=== PATIENT | female | born 1965 | race Caucasian/White ===

== ENCOUNTER → 2016-06-16 | Outpatient (CLI) | payer BC, MEDICARE ==
[~2016-06-16] MED LIST: /ESOM40CA OR; ATEN25TA OR; FLEXERIL PO; MAXA10TA17 OR; NORT10CA2 OR; RANI300T OR; SPIR25TA2 OR; TOPI100T OR; TOPI50TA OR; VICO5TAB OR; VITACAP31 PO; VITAMIN B12 PO
--- NOTE | 2016-06-24 01:33 | ECWPNPC ---
PATIENT NAME: CHELSY HUNT : 1965 GENDER: FEMALE VISIT DATE: 06/16/2016 DISCHARGE DATE: 06/16/16 1439 VISIT LOCKED DATE TIME: PHYSICIAN: CHI FLORES RESOURCE: CHI FLORES REASON FOR APPOINTMENT 1. NECK/BACK HISTORY OF PRESENT ILLNESS NEW PATIENT CONSULT: 51 Y/O REFERRED BY LUANNE KOROMA PA-C FOR CHRONIC LOW BACK PAIN AND NECK PAIN.THIS HAS BEEN AN ISSUE FOR SEVERAL YEARS.WAS TOLD THAT NECK INJECTIONS MAY BE HELPFUL FOR CHRONIC MIGRAINE HEADACHES.RECIEVED TWO ROUNDS OF BOTOX PAST 6 MOS. 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 WHEN DID YOUR PAIN FIRST START? . BRIEFLY DESCRIBE HOW YOUR PAIN STARTED? . HOW DOES YOUR PAIN CHANGE WITH TIME? . DOES YOUR PAIN AWAKEN YOU FROM SLEEP? . HOW MANY HOURS OF SLEEP DO YOU NORMALLY GET? . ANY DIAGNOSTIC TESTING? . FACILITY WHERE TESTS WERE DONE? ____. PAIN TREATMENT TREATMENT YES CANCER HAVE YOU EVER HAD ANY TYPE OF CANCER?NO NO. PAIN SCREENING: PATIENT HAS A COMPLAINT OF ACUTE OR CHRONIC PAIN :YES FALL RISK SCREENING: SCREENING :NO FALLS IN THE PAST YEAR SANDERS INVENTORY: QUESTIONNAIRE ASSESSEDTBD SCORE VALUE CALCULATED TBD CURRENT MEDICATIONS TAKING CYCLOBENZAPRINE HCL 10 MG TABLET 1 TABLET ORALLY EVERY BEDTIME TAKING VITAMIN B-12 1000 MCG TABLET 1 TABLET ORALLY ONCE A DAY TAKING VITAMIN D3 59660 UNIT CAPSULE 1 CAPSULE ORALLY ONCE A DAY TAKING MAY USE C PAP DIRECTED TAKING RELPAX 40 MG TABLET 1 TABLET AT ONSET OF HEADACHE, MAY REPEAT AFTER 2 HOURS IF HEADACHE RETURNS ORALLY NEEDED TAKING MELOXICAM 7.5 MG TABLET 1 TABLET ORALLY TWICE A DAY TAKING ATENOLOL 25 MG TABLET 1 TABLET ORALLY ONCE A DAY TAKING HYDROCODONE-ACETAMINOPHEN 5-325 MG TABLET 1 TABLET NEEDED ORALLY DAILY NEEDED TAKING ESOMEPRAZOLE MAGNESIUM 40 MG CAPSULE DELAYED RELEASE 2 CAPSULES ORALLY TWICE A DAY TAKING ASPIRIN ADULT LOW DOSE 81 MG TABLET DELAYED RELEASE 1 TABLET ORALLY ONCE A DAY NOT-TAKING NORTRIPTYLINE HCL 10 MG CAPSULE 2 TAB(S) ORALLY BEDTIME NOT-TAKING TOPIRAMATE 100 MG TABLET 2 TABLETS ORALLY 50 MG. IN THE AM AND 100 MG. AT BEDTIME NOT-TAKING NEXIUM 40 MG CAPSULE DELAYED RELEASE 1 CAP(S) ORALLY TWICE A DAY NOT-TAKING FERROUS SULFATE 220 (44 FE) MG/5ML ELIXIR 5 ML ORALLY TWICE A DAY MEDICATION LIST REVIEWED AND RECONCILED WITH THE PATIENT PAST MEDICAL HISTORY MAC PNEUMONIA WITH BRONCHIECTASIS SEVERE GASTROESOPHAGEAL REFLUX DISEASE FIBROMYALGIA OSTEOARTHRITIS HYPERTENSION MIGRAINE HEADACHE HISTORY OF LUNG ABSCESS AND PNEUMONIA IN 1990 VITAMIN D DEFICIENCY PERNICIOUS ANEMIA COPD TIA SLEEP APNEA ASTHMA ALLERGIES ERYTHROMYCIN: NAUSEA/VOMITING: SIDE EFFECTS IMITREX: NUMBNESS IN EXTREMITIES: SIDE EFFECTS SPIRONOLACTONE: DIZZINESS: SIDE EFFECTS LYRICA: CONFUSION: SIDE EFFECTS ROBAXIN: DIZZINESS: SIDE EFFECTS SURGICAL HISTORY BLADDER SURGERY 1968 TONSILECTOMY 03/17 RIGHT LUNG REMOVED 2009 FAMILY HISTORY FATHER: ALIVE MOTHER: ALIVE SIBLINGS: ALIVE SON(S): ALIVE DAUGHTER(S): ALIVE PATERNAL GRAND FATHER: PATERNAL GRAND MOTHER: MATERNAL GRAND FATHER: MATERNAL GRAND MOTHER: 1 BROTHER(S) , 2 SISTER(S) . 1 SON(S) , 1 DAUGHTER(S) . FATHER/OXYGEN DEP,SEVERAL SURGERIES,CANCER,HEART DISEASE,MINI STROKES,PARKINSON,ALZHEIMERS,HTN,DIABETES,ARTHRITIS,COPDMOTHER/CO D,ARTHRITISBROTHER HAS ARTHRITIS,LUPUSSISTERS HAVE ARTHRITIS AND 1 SISTER HAS HEART PROBLEMS AND PANIC ATTACKSDAUGHTER HAS MENSTRUAL CYCLE SINCE 10 CONTINUOUS. SOCIAL HISTORY GENERAL: ALCOHOL SCREENING POINTS0 INTERPRETATIONNEGATIVE RECREATIONAL DRUG USE DRUG USE? STATES NO HISTORY ILLEGAL DRUG USE. ISLAM ISLAM NO PREFERENCE LEARNING BARRIERS / SPECIAL NEEDS BARRIERS TO LEARNING?NO HEARING IMPAIRED?NO VISION IMPAIRED?YES READING GLASSES COGNITIVELY IMPAIRED?NO READINESS TO LEARN?YES LEARNING PREFERENCES?NO LEARNING CAPABILITIES PRESENT?YES EMOTIONAL BARRIERS?NO SPECIAL DEVICES?NO AGRICULTURE EXTENSION SPECIALIST NEEDED?NO PAIN CLINIC PFS, CLERGY, PUBLIC HEALTH REFERRALS CLERGY REFERRAL NEEDED?NO WAS THE PROVIDER NOTIFIED OF ANY PERTINENT INFO?NO PFS REFERRAL NEEDED?NO PUBLIC HEALTH REFERRAL NEEDED?NO PATIENT: ____. ADVANCED DIRECTIVES HEALTH CARE PROXY? UNSURE. INFORMATION OFFERED AND DECLINED. HOSPITALIZATION/MAJOR DIAGNOSTIC PROCEDURE BLADDER 1969 TONSILS 1982 CHILDBIRTH 1986 CHILDBIRTH 1992 LUNG 2010 REVIEW OF SYSTEMS CONSTITUTIONAL: RECENT ILLNESS DENIES . ANY CHANGE IN YOUR MEDICAL CONDITION? NO . CHILLS NO . FEVER NO, DENIES . WEIGHT LOSS DENIES . INFECTION: DO YOU HAVE NEW INFECTIONS? NO . DO YOU HAVE HISTORY OF MRSA? NO . MUSCULOSKELETAL: ANY NEW PATTERNS OF PAIN OR NUMBNESS? NO . SYTEMIC LUPUS TESTED BORDERLINE ONCE BUT NO CURRENT DIAGNOSIS, BROTHER DOES HAVE IT . JOINT PAIN DENIES . JOINT STIFFNESS DENIES . GASTROENTEROLOGY: BOWEL INCONTINENCE DENIES . ANY NEW CHANGE IN BOWEL CONTROL? NO . BARRETTS ESOPHAGUS NO . CIRRHOSIS NO . HEPATITIS NO . LIVER FAILURE NO . ACID REFLUX YES . BLOOD IN STOOL DENIES . UNEXPLAINED WEIGHT LOSS NO . GENITOURINARY: ANY NEW CHANGE IN BLADDER CONTROL? NO . IS THERE A CHANCE YOU COULD BE ? NO . HEMATOLOGY/LYMPH: DENIES . BLEEDING DISORDER DENIES . DO YOU TAKE ANY BLOOD THINNERS? (FOR EXAMPLE- COUMADIN, PLAVIX, AGGRENOX, PLATEL, PRADAXA, OR XARELTO) NO . WHEN WAS YOUR LAST DOSE? DATE: TIME: . LOW PLATELET COUNT NO . SICKLE CELL DISEASE NO . VON WILLIEBRANDS NO . FACTOR V LEIDEN NO . THALLASEMIA NO . ANEMIA NO . EASY BRUISING YES, STATES IS DUE TO MOBIC . NEUROLOGY: HAVE YOU FALLEN IN THE PAST 6 MONTHS? NO . ANY NEW EXTREMITY NUMBNESS OR WEAKNESS? NO . HEAD INJURY NO . DEMENTIA NO . CEREBRAL PALSY NO . MULTIPLE SCLEROSIS NO . DIZZINESS NO . HEADACHE NO, DENIES . SEIZURES DENIES . STROKES NO, DOES HAVE A HISTORY OF TIA MORE THAN 6 MONTH AGO . VERTIGO NO . CARDIOLOGY: DO YOU HAVE A PACEMAKER OR DEFIBRILLATOR? NO . ANGINA NO . HEART ATTACK NO . HEART SURGERY NO . CONGESTIVE HEART FAILURE/FLUID OVERLOAD NO . CHEST PAIN LEFT-SIDED, SHARP, MOST RECENT EPISODE 1 WEEK AGO, STATES LASTED 30 MINUTES, DENIES . HIGH BLOOD PRESSURE YES . IRREGULAR HEART BEAT YES . SHORTNESS OF BREATH DENIES . RESPIRATORY: HAVE YOU BEEN SICK IN THE PAST WEEK? NO . FEVER NO . FLU LIKE SYMPTOMS? NO . CPAP YES . BYPAP NO . ASTHMA YES . EMPHYSEMA YES . CHRONIC LUNG DISEASES NO . SHORTNESS OF BREATH ON EXERTION YES . DO YOU USE ANY TYPE OF TOBACCO (SMOKE, SMOKELESS, CHEW)? NO . COUGH NO, DENIES . SHORTNESS OF BREATH DENIES . SNORING YES . INTEGUMENTARY: DO YOU HAVE ANY RASHES OR OPEN SORES? YES, DRY AREAS LEFT LEG . ALLERGIC/IMMUNO: ARE YOU ALLERGIC TO SHELLFISH OR IV DYE? NO . ANY NEW ALLERGIES? YES . PSYCHIATRIC: DO YOU HAVE THOUGHTS OF HURTING YOURSELF OR SOMEONE ELSE? NO . ARE YOU ABUSED, NEGLECTED, OR IN AN UNSAFE ENVIRONMENT? NO . ENDOCRINOLOGY: THYROID DISEASE DENIES . ARE YOU DIABETIC? NO . DIABETES DENIES . THYROID DISORDER HYPOTHYROID . OTHER: DO YOU NEED ANY PRESCRIPTIONS? NO . IF YES, PLEASE LIST: ____ . ANY NEW PROBLEMS WITH YOUR MEDICATIONS? NO . WHEN DID YOU LAST EAT? ____ . WHEN DID YOU LAST DRINK? ____ . WHAT DID YOU LAST DRINK? ____ . NAME OF PERSON DRIVING YOU HOME? ____ . DO YOU HAVE ANY OTHER QUESTIONS OR CONCERNS NO . HEENT: CHANGE IN VISION DENIES . LOSS OF HEARING DENIES . TROUBLE SWALLOWING DENIES . PSYCHOLOGY: ANXIETY DENIES . DEPRESSION DENIES . UROLOGY: URINARY INCONTINENCE DENIES . BLOOD IN URINE DENIES . REVIEWED BY: PROVIDER: CHI BARAKAT . VITAL SIGNS WT 184.4 LBS, HT 60 IN, BMI 36.01 INDEX, BP 167/98 MM HG, HR 102 /MIN, RR 18 /MIN, TEMP 98.1 F, OXYGEN SAT % 94%, NA INITIALS TL 1258, REVIEWED BY: LS. EXAMINATION GENERAL EXAMINATION: HEENT:HEAD:, NORMOCEPHALIC, EYES:, EYES NORMAL, NOSE:, NOSE CLEAR, THROAT: NORMAL. LUNGS:LUNG SOUNDS ARE CLEAR. HEART:HEART RATE REGULAR. ABDOMEN:SOFT AND NOT TENDER, NON-DISTENDED. MUSCULOSKELETAL:*. THORACIC SPINENEGATIVE FOR PAIN WITH PALPATION OF THORACIC SPINE. NEGATIVE FOR PAIN WITH PALPATION OF THORACIC PARASPINAL. CERVICAL+ FOR PAIN WITH PALPATION OF CERVICAL SPINE. + FOR PAIN WITH PALPATION OF CERVICAL PARASPINALS.+FOR PAIN WITH PALPATION OF OCCIPITAL NERVE ROOT BILAT.. SKIN:NORMAL, NO RASH. NEUROLOGIC EXAM:ALERT AND ORIENTED X 3, DTRS 1-2+ IN ALL 4 EXTREMITIES, DENIES UPPER EXTREMETIES SENSORY LOSS, DENIES LOWER EXTREMETIES SENSORY LOSS. ASSESSMENTS BILATERAL OCCIPITAL NEURALGIA - M54.81 (PRIMARY) LUMBAR FACET ARTHROPATHY - M12.88 TREATMENT BILATERAL OCCIPITAL NEURALGIA NOTES: [facility] [id number] EVALUATION OF C/O CHEST PAIN. OTHERS CLINICAL NOTES: ISTOP REGISTRY REVIEWED . PROCEDURES PN WORKMANS' COMP OPINION IN YOUR OPINION, WAS THE INCIDENT THAT THE PATIENT DESCRIBED THE COMPETENT MEDICAL CAUSE OF THIS INJURY/ILLNESS? YES ARE THE PATIENT'S COMPLAINTS CONSISTENT WITH HIS/HER HISTORY OF THE INJURY/ILLNESS? YES IS THE PATIENT'S HISTORY OF THE INJURY/ILLNESS CONSISTENT WITH YOUR OBJECTIVE FINDING? YES WHAT IS THE PERCENTAGE OF TEMPORARY IMPAIRMENT? MILD = 25% IS THE PATIENT WORKING? YES DOCTOR ON SITE: XU ROBERTS MD PROCEDURE CODES FA211 ESTABILISHED PATIENT [facility] CHARGE DISPOSITION & COMMUNICATION FOLLOW UP 6 WEEKS ELECTRONICALLY SIGNED BY ROSHNI SORIANO ON 06/23/2016 AT 06:02 PM EDT DISCLAIMER : THIS IS A VISIT SUMMARY EXTRACTED FROM THE [employer] CHART. IT IS NOT A COPY OF THE [employer] PROGRESS NOTE. KAYDEN
== END ==
LOC: M PAIN 13:20
PROVIDERS: ATTEND Nurse Practitioner Family
DX: M54.81 Occipital neuralgia (principal); M12.88 Other specific arthropathies, not elsewhere classified, other specified site; M54.2 Cervicalgia; G89.29 Other chronic pain; Z79.891 Long term (current) use of opiate analgesic; Z79.899 Other long term (current) drug therapy; Z79.82 Long term (current) use of aspirin; Z88.0 Allergy status to penicillin; Z88.8 Allergy status to other drugs, medicaments and biological substances; I10 Essential (primary) hypertension

== ENCOUNTER 2016-07-09 11:48 | Emergency (ER) | payer BC, MEDICARE ==
[~2016-07-09] VITALS: Ht 152.4 cm; Wt 79.4 kg
[2016-07-09] MEDS ORDERED: BOTO200I IJ (12:06)
[2016-07-09] MEDS ORDERED: METOPROLOL TART 50 MG TAB PO ONE (13:00)
[2016-07-09] MEDS: METOPROLOL 5 MG/5 ML VIAL IV SCH ×3 (13:03→13:16)
[2016-07-09 13:04] LABS: BASO % 0.7 % (0.0-1.0); EOS % 0.7 % (0.0-3.0); LARGE UNSTAINED CELL # 0.1 K/mm3 (0.0-0.4); LARGE UNSTAINED CELL % 1.6 % (0.0-4.0); LYMPH # 1.9 K/mm3 (1.5-4.5); LYMPH % 24.4 % (24.0-44.0); MEAN CORPUSCULAR HEMOGLOBIN 27.3 pg (27.0-33.0); MEAN CORPUSCULAR HGB CONC 32.2 g/dl (32.0-36.5); MEAN CORPUSCULAR VOLUME 84.8 fl (80.0-96.0); MONO # 0.5 K/mm3 (0.0-0.8); MONO % 6.9 % (0.0-5.0); NEUTROPHILS # 4.8 K/mm3 (1.8-7.7); NEUTROPHILS % 65.6 % (36.0-66.0); PLATELET COUNT, AUTOMATED 481 k/mm3 (150-450); RED CELL DISTRIBUTION WIDTH 13.6 % (11.5-14.5); WHITE BLOOD COUNT 7.3 K/mm3 (4.0-10.0)
[2016-07-09 13:14] LABS: ANION GAP 8 MEQ/L (8-16); BLOOD UREA NITROGEN 6 MG/DL (7-18); CALCIUM LEVEL 8.5 MG/DL (8.5-10.1); CARBON DIOXIDE LEVEL 29 MEQ/L (21-32); CHLORIDE LEVEL 98 MEQ/L (98-107); CREATININE FOR GFR 0.74 MG/DL (0.55-1.02); GLOMERULAR FILTRATION RATE > 60.0 (>51); GLUCOSE, FASTING 114 MG/DL (70-105); SODIUM LEVEL 135 MEQ/L (136-145)
[2016-07-09 13:18] VITALS: BP 142/89
--- NOTE | 2016-07-09 13:35 | REP ---
CHEST, PORTABLE: Single portable view of the chest is performed and compared to prior study of 02/26/2015. Linear fibroatelectatic changes seen in each lung base without evidence of acute infiltrate. The heart does not appear to be significantly enlarged. There is tortuosity of the thoracic aorta. The mediastinal silhouette is unchanged. IMPRESSION: No acute infiltrate. Signed by Og Mello MD 07/10/2016 04:43 P
[2016-07-09] MEDS ORDERED: POTASSIUM CHLORIDE 10 MEQ SR TABLET PO ONE (14:00)
[2016-07-09 14:10] LABS: FREE T4 1.78 NG/DL (0.76-1.46)
[2016-07-09 14:30] VITALS: BP 146/92
[2016-07-09] MEDS ORDERED: ATEN50TA2 PO ×2 (14:49→15:03)
[2016-07-09] MEDS ORDERED: ATEN25TA PO (15:01)
[2016-07-09] MEDS ORDERED: SYNT25TA PO (15:01)
[2016-07-09] MEDS ORDERED: VITA (15:01)
[2016-07-09] MEDS ORDERED: [UNRECOGNIZED DRUG - OTHER] (15:01)
--- NOTE | 2016-07-10 09:16 | ECGEPIP ---
Stationary ECG Study [facility] - ED Test Date: 2016-07-09 Pat Name: CHELSY HUNT Department: Room: - Gender: F [employer] Construction Project Manager: JWayne : 1965 Requested By: Kian Burns Order Number: [id number] Reading MD: Melissa Waterman Measurements Intervals Wilson Rate: 106 P: 35 WA: 150 QRS: 25 QRSD: 90 T: -6 QT: 349 QTc: 465 Interpretive Statements SINUS TACHYCARDIA NONSPECIFIC T-WAVE ABNORMALITY ABNORMAL RHYTHM ECG INCREASED RATE 04/15/14 Electronically Signed On 07-10-2016 9:16:15 EDT by Melissa Waterman
== END 2016-07-09 15:16 | disposition home or self-care (01) ==
LOC: M ED 14:09
DX: I10 Essential (primary) hypertension (principal); G43.909 Migraine, unspecified, not intractable, without status migrainosus; G47.30 Sleep apnea, unspecified; G89.29 Other chronic pain; Z79.899 Other long term (current) drug therapy; Z88.1 Allergy status to other antibiotic agents; Z88.8 Allergy status to other drugs, medicaments and biological substances

== ENCOUNTER → 2016-07-28 | Outpatient (REF) | payer BC, MEDICARE ==
[~2016-07-28] MED LIST changes: +ATEN25TA PO; +ATEN50TA2 PO; +BOTO200I IJ; +SYNT25TA PO; +VITA; +[UNRECOGNIZED DRUG - OTHER]
[2016-07-28 12:02] LABS: FREE T4 1.15 NG/DL (0.76-1.46)
== END ==
LOC: M SFHCLERA 08:38
PROVIDERS: ATTEND Family Medicine
DX: R94.6 Abnormal results of thyroid function studies (principal)

== ENCOUNTER → 2016-07-29 | Outpatient (CLI) | payer BC ==
[2016-07-29 17:40] LABS: ALBUMIN 4.1 GM/DL (3.2-5.2); ALBUMIN/GLOBULIN RATIO 1.08 (1.00-1.93); ALKALINE PHOSPHATASE 104 U/L (45-117); ALT/SGPT 20 U/L (12-78); ANION GAP 10 MEQ/L (8-16); AST/SGOT 12 U/L (15-37); BILIRUBIN,TOTAL 0.5 MG/DL (0.2-1.0); BLOOD UREA NITROGEN 12 MG/DL (7-18); CALCIUM LEVEL 9.5 MG/DL (8.5-10.1); CARBON DIOXIDE LEVEL 28 MEQ/L (21-32); CHLORIDE LEVEL 98 MEQ/L (98-107); CREATININE FOR GFR 0.91 MG/DL (0.55-1.02); GLOMERULAR FILTRATION RATE > 60.0 (>51); GLUCOSE, FASTING 104 MG/DL (70-105); POTASSIUM SERUM 4.1 MEQ/L (3.5-5.1); SODIUM LEVEL 136 MEQ/L (136-145); TOTAL PROTEIN 7.9 GM/DL (6.4-8.2)
[2016-07-29 18:17] LABS: BASO # 0.1 K/mm3 (0.0-0.2); BASO % 0.6 % (0.0-1.0); EOS # 0.1 K/mm3 (0.0-0.50); EOS % 1.1 % (0.0-3.0); LARGE UNSTAINED CELL # 0.1 K/mm3 (0.0-0.4); LARGE UNSTAINED CELL % 1.3 % (0.0-4.0); LYMPH % 19.5 % (24.0-44.0); MEAN CORPUSCULAR HEMOGLOBIN 28.4 pg (27.0-33.0); MEAN CORPUSCULAR HGB CONC 32.1 g/dl (32.0-36.5); MEAN CORPUSCULAR VOLUME 88.5 fl (80.0-96.0); MONO # 0.4 K/mm3 (0.0-0.8); MONO % 4.3 % (0.0-5.0); NEUTROPHILS # 7.4 K/mm3 (1.8-7.7); NEUTROPHILS % 73.2 % (36.0-66.0); PLATELET COUNT, AUTOMATED 503 k/mm3 (150-450); WHITE BLOOD COUNT 10.2 K/mm3 (4.0-10.0)
== END ==
LOC: M SMT 15:38
PROVIDERS: ATTEND Internal Medicine Rheumatology
DX: M17.11 Unilateral primary osteoarthritis, right knee (principal); Z79.899 Other long term (current) drug therapy; E55.9 Vitamin D deficiency, unspecified

== ENCOUNTER → 2016-08-04 | Outpatient (CLI) | payer BC, MEDICARE ==
--- NOTE | 2016-08-04 14:58 | REP ---
Thyroid sonography: History: Hyperthyroidism. Findings: Thyroid isthmus is 0.2 cm thick. Right lobe dimensions are 5.1 x 1.2 x 1.7 cm by ultrasound. The left lobe measures 3.9 x 1.2 x 1.8 cm. No focal thyroid nodule, mass or cyst is seen. No evidence of extrathyroidal adenopathy or mass. Impression: Normal thyroid sonography. Signed by Ron Colmenares MD 08/04/2016 03:14 P
--- NOTE | 2016-08-05 15:58 | REPMRS ---
Patient History The patient states she has not had a clinical breast exam in over a year. Family history of prostate cancer in father at age 60. Took unspecified hormones for 5 years. Patient states her last mammogram was done at [facility] Digital Mammo Screening Bilat: August 04, 2016 - Exam #: [id number] Bilateral CC and MLO view(s) were taken. Technologist: Nikole Strong, Technologist Prior study comparison: October 30, 2009, digital bilateral screening mammo, performed at [facility] 1928[facility]1983. FINDINGS: The breast tissue is heterogeneously dense. This may lower the sensitivity of mammography. There is a moderate amount of heterogeneously dense fibroglandular tissue which is fairly symmetric. There is a benign partially calcified fibroadenoma projecting in the upper outer quadrant on the right. There is no interval development of dominant mass, architectural distortion, or clustered microcalcification typical of malignancy. There has been no change in the appearance of the mammogram from the prior studies. ASSESSMENT: BI-RADS/ACR category 2 mammogram. Benign finding(s). Recommendation Routine screening mammogram of both breasts in 1 year (for women over age 40). This mammogram was interpreted with the aid of an FDA-approved computer-aided dectection system. Electronically Signed By: Darrell Colmenares MD 08/04/16 1234
== END ==
LOC: M RAD 13:55
PROVIDERS: ATTEND Family Medicine
DX: E05.90 Thyrotoxicosis, unspecified without thyrotoxic crisis or storm (principal); Z12.31 Encounter for screening mammogram for malignant neoplasm of breast
CPT/HCPCS: 76536; G0202

== ENCOUNTER → 2016-08-19 | Outpatient (CLI) | payer BC, MEDICARE ==
--- NOTE | 2016-08-20 01:40 | ECWPNPC ---
PATIENT NAME: CHELSY HUNT : 1965 GENDER: FEMALE VISIT DATE: 08/19/2016 DISCHARGE DATE: 08/19/16 1536 VISIT LOCKED DATE TIME: PHYSICIAN: CHI FLORES RESOURCE: CHI FLORES REASON FOR APPOINTMENT 1. BACK/HEAD HISTORY OF PRESENT ILLNESS HISTORY OF PRESENT ILLNESS: HERE FOR F/U OF CHRONIC NECK AND HEADACHE PAIN.HAS DAILY HEADACHES THAT ARE CHRONIC FOR YEARS.CURRENTLY BEING TREATED BY LUANNE KOROMA AT NEUROLOGY.SHE IS RECIEVING BOTOX WHICH HAS NOT BEEN HELPFUL.DISCUSSED TREATMENT OPTIONS TO INCLUDE CERVICAL FACET BLOCK AND OCCIPITAL NERVE BLOCKS.RATING PAIN VAS 7/10.PAIN IS DESCRIBED CONSTANT ACHE AND THROBBING PAIN IN OCCIPITAL REGION.REPORTS LIGHT SENSITIVITY AND NAUSEA.USES HYDROCODONE PRN AND THIS ALLEVIATES HEADACHE SLIGHTLY.ALSO SUFFERS FROM CHRONIC LOW BACK PAIN.HAS RHEUMATOID ARTHRITIS AND FOLLOWS WITH DR. SAUNDERS-RHEUMATOLOGY.DESCRIBES LOW BACK PAIN INTERMITTENT ACHING PAIN .RATING LOW BACK PAIN 8/10 VAS. PAIN THE PATIENT DESCRIBES THE PAIN... FALL RISK SCREENING: SCREENING :NO FALLS IN THE PAST YEAR CURRENT MEDICATIONS TAKING CYCLOBENZAPRINE HCL 10 MG TABLET 1 TABLET ORALLY EVERY BEDTIME TAKING VITAMIN B-12 1000 MCG TABLET 1 TABLET ORALLY ONCE A DAY TAKING VITAMIN D3 5000 UNIT CAPSULE 1 CAPSULE ORALLY ONCE A DAY TAKING MAY USE C PAP DIRECTED TAKING MELOXICAM 7.5 MG TABLET 1 TABLET ORALLY TWICE A DAY TAKING HYDROCODONE-ACETAMINOPHEN 5-325 MG TABLET 1 TABLET NEEDED ORALLY DAILY NEEDED TAKING ASPIRIN ADULT LOW DOSE 81 MG TABLET DELAYED RELEASE 1 TABLET ORALLY ONCE A DAY TAKING ESOMEPRAZOLE MAGNESIUM 40 MG CAPSULE DELAYED RELEASE 2 CAPSULES ORALLY TWICE A DAY TAKING METOPROLOL TARTRATE 25 MG TABLET 1 TABLET WITH FOOD ORALLY TWICE A DAY TAKING ATENOLOL 50 MG TABLET 1 TABLET ORALLY ONCE A DAY TAKING HYDROCHLOROTHIAZIDE 25 MG TABLET 1 TABLET IN THE MORNING ORALLY ONCE A DAY TAKING CHOLECALCIFEROL 5000 UNIT CAPSULE 1 CAPSULE ORALLY ONCE A DAY TAKING ZONISAMIDE 25 MG CAPSULE 2 CAPSULES ORALLY TWICE A DAY NOT-TAKING RELPAX 40 MG TABLET 1 TABLET AT ONSET OF HEADACHE, MAY REPEAT AFTER 2 HOURS IF HEADACHE RETURNS ORALLY NEEDED NOT-TAKING NORTRIPTYLINE HCL 10 MG CAPSULE 2 TAB(S) ORALLY BEDTIME NOT-TAKING TOPIRAMATE 100 MG TABLET 2 TABLETS ORALLY 50 MG. IN THE AM AND 100 MG. AT BEDTIME NOT-TAKING NEXIUM 40 MG CAPSULE DELAYED RELEASE 1 CAP(S) ORALLY TWICE A DAY NOT-TAKING FERROUS SULFATE 220 (44 FE) MG/5ML ELIXIR 5 ML ORALLY TWICE A DAY MEDICATION LIST REVIEWED AND RECONCILED WITH THE PATIENT PAST MEDICAL HISTORY MAC PNEUMONIA WITH BRONCHIECTASIS SEVERE GASTROESOPHAGEAL REFLUX DISEASE FIBROMYALGIA OSTEOARTHRITIS HYPERTENSION MIGRAINE HEADACHE HISTORY OF LUNG ABSCESS AND PNEUMONIA IN 1990 VITAMIN D DEFICIENCY PERNICIOUS ANEMIA COPD TIA SLEEP APNEA ASTHMA CERVICAL RADICULOPATHY HYPOTHYROIDISM LUPUS ERYTHEMATOSUS BILATERAL OCCIPITAL NEURALGIA ALLERGIES ERYTHROMYCIN: NAUSEA/VOMITING: SIDE EFFECTS IMITREX: NUMBNESS IN EXTREMITIES: SIDE EFFECTS SPIRONOLACTONE: DIZZINESS: SIDE EFFECTS LYRICA: CONFUSION: SIDE EFFECTS ROBAXIN: DIZZINESS: SIDE EFFECTS SUMATRIPTAN: DIZZINESS: SIDE EFFECTS AZITHROMYCIN: NAUSEA/VOMITING: SIDE EFFECTS RIFABUTIN: DIZZYNESS: SIDE EFFECTS SURGICAL HISTORY BLADDER SURGERY 1969 TONSILECTOMY 03/17 RIGHT LUNG REMOVED 2009 HOSPITALIZATION/MAJOR DIAGNOSTIC PROCEDURE BLADDER 1969 TONSILS 1981 CHILDBIRTH 1985 CHILDBIRTH 1992 LUNG 2010 REVIEW OF SYSTEMS CONSTITUTIONAL: ANY CHANGE IN YOUR MEDICAL CONDITION? NO . CHILLS NO . FEVER NO . INFECTION: DO YOU HAVE NEW INFECTIONS? NO . DO YOU HAVE HISTORY OF MRSA? NO . MUSCULOSKELETAL: ANY NEW PATTERNS OF PAIN OR NUMBNESS? NO . GASTROENTEROLOGY: ANY NEW CHANGE IN BOWEL CONTROL? NO . GENITOURINARY: ANY NEW CHANGE IN BLADDER CONTROL? NO . IS THERE A CHANCE YOU COULD BE ? NO . HEMATOLOGY/LYMPH: DO YOU TAKE ANY BLOOD THINNERS? (FOR EXAMPLE- COUMADIN, PLAVIX, AGGRENOX, PLATEL, PRADAXA, OR XARELTO) NO . WHEN WAS YOUR LAST DOSE? DATE: TIME: . NEUROLOGY: HAVE YOU FALLEN IN THE PAST 6 MONTHS? NO . ANY NEW EXTREMITY NUMBNESS OR WEAKNESS? NO . CARDIOLOGY: DO YOU HAVE A PACEMAKER OR DEFIBRILLATOR? TO ER FOR CHEST PAIN AFTER LAST VISIT IN JUNE AND STATES SHE WAS NEGATIVE FOR ANY CARDIAC ISSUES. . RESPIRATORY: HAVE YOU BEEN SICK IN THE PAST WEEK? NO . FEVER NO . FLU LIKE SYMPTOMS? NO . COUGH NO . INTEGUMENTARY: DO YOU HAVE ANY RASHES OR OPEN SORES? NO . ALLERGIC/IMMUNO: ARE YOU ALLERGIC TO SHELLFISH OR IV DYE? NO . ANY NEW ALLERGIES? NO . PSYCHIATRIC: DO YOU HAVE THOUGHTS OF HURTING YOURSELF OR SOMEONE ELSE? NO . ARE YOU ABUSED, NEGLECTED, OR IN AN UNSAFE ENVIRONMENT? NO . ENDOCRINOLOGY: ARE YOU DIABETIC? NO, PT WAS TOLD SHE IS BORDERLINE DIABETIC. PT STATES DIET CHANGE LOW CARB. . OTHER: DO YOU NEED ANY PRESCRIPTIONS? NO . IF YES, PLEASE LIST: ____ . ANY NEW PROBLEMS WITH YOUR MEDICATIONS? NO . WHEN DID YOU LAST EAT? ____ . WHEN DID YOU LAST DRINK? ____ . WHAT DID YOU LAST DRINK? ____ . NAME OF PERSON DRIVING YOU HOME? ____ . DO YOU HAVE ANY OTHER QUESTIONS OR CONCERNS NO . REVIEWED BY: PROVIDER: CHI BARAKAT . VITAL SIGNS WT 179.2 LBS, HT 60 IN, BMI 34.99 INDEX, BP 148/88 MM HG, HR 100 /MIN, RR 18 /MIN, TEMP 97.3 F, OXYGEN SAT % 96%, SAFE IN ENV? (Y/N) Y, NA INITIALS SC 14:40, REVIEWED BY: PEDRO PABLO. EXAMINATION GENERAL EXAMINATION: HEENT:HEAD:, NORMOCEPHALIC, EYES:, EYES NORMAL, NOSE:, NOSE CLEAR, THROAT: NORMAL. LUNGS:LUNG SOUNDS ARE CLEAR. HEART:HEART RATE REGULAR. ABDOMEN:SOFT AND NOT TENDER, NON-DISTENDED. MUSCULOSKELETAL:*. THORACIC SPINENEGATIVE FOR PAIN WITH PALPATION OF THORACIC SPINE. NEGATIVE FOR PAIN WITH PALPATION OF THORACIC PARASPINAL. CERVICAL+ FOR PAIN WITH PALPATION OF CERVICAL SPINE. + FOR PAIN WITH PALPATION OF CERVICAL PARASPINALS.+FOR PAIN WITH PALPATION OF OCCIPITAL NERVE ROOT BILAT.. SKIN:NORMAL, NO RASH. NEUROLOGIC EXAM:ALERT AND ORIENTED X 3, DTRS 1-2+ IN ALL 4 EXTREMITIES, DENIES UPPER EXTREMETIES SENSORY LOSS, DENIES LOWER EXTREMETIES SENSORY LOSS. DIAGNOSTIC DATA-MRI [id number] L/S [id number]-REVIEWED. ASSESSMENTS BILATERAL OCCIPITAL NEURALGIA - M54.81 (PRIMARY) LUMBAR FACET ARTHROPATHY - M12.88 TREATMENT BILATERAL OCCIPITAL NEURALGIA NOTES: REQUEST BILAT. OCCIPITAL NERVE BLOCK,TRIGGER POINT INJECTION MATERIAL WAS PRINTED, REVIEWED AND GIVEN TO PT. EXPLAINED VERY SIMILAR TO OCCIPITAL NERVE BLOCK. PROCEDURE CODES FA211 ESTABILISHED PATIENT [facility] CHARGE DISPOSITION & COMMUNICATION FOLLOW UP 2 WEEKS POST PROCEDURE (REASON: REQUEST BILAT. OCCIPITAL NERVE BLOCK) ELECTRONICALLY SIGNED BY ROSHNI SORIANO ON 08/19/2016 AT 03:49 PM EDT DISCLAIMER : THIS IS A VISIT SUMMARY EXTRACTED FROM THE [employer] CHART. IT IS NOT A COPY OF THE [employer] PROGRESS NOTE. KAYDEN
== END ==
LOC: M PAIN 14:40
PROVIDERS: ATTEND Nurse Practitioner Family
DX: M54.81 Occipital neuralgia (principal); M12.88 Other specific arthropathies, not elsewhere classified, other specified site; G89.29 Other chronic pain; Z79.891 Long term (current) use of opiate analgesic; Z79.82 Long term (current) use of aspirin; Z79.899 Other long term (current) drug therapy; Z88.0 Allergy status to penicillin; Z88.8 Allergy status to other drugs, medicaments and biological substances; Z88.1 Allergy status to other antibiotic agents

== ENCOUNTER → 2016-10-20 | Outpatient (CLI) | payer BC, MEDICARE ==
--- NOTE | 2016-11-04 01:52 | ECWPNPC ---
PATIENT NAME: CHELSY HUNT : 1965 GENDER: FEMALE VISIT DATE: 10/20/2016 DISCHARGE DATE: 10/20/16 1135 VISIT LOCKED DATE TIME: PHYSICIAN: XU FRANCO RESOURCE: XU FRANCO REASON FOR APPOINTMENT 1. NECK/BACK PAIN AND MIGRAINES HISTORY OF PRESENT ILLNESS HISTORY OF PRESENT ILLNESS: PAIN THE PATIENT DESCRIBES THE PAIN... 51 YEAR OLD FEMALE PATIENT WITH HISTORY OF CHRONIC NECK/BACK PAIN AND HEADACHES. PATIENT DESCRIBES THE PATIENT ACHING, THROBBING, SORE, AND SHOOTING WITH A PAIN SCORE OF 6-7/10. PATIENT STATES SHE HAS RECEIVED OCCIPITAL NERVE BLOCKS BEFORE WHICH CAUSED HER TO BE DIZZY AND HAD A LUMP ON THE BACK OF HER HEAD FOR SOME TIME. PATIENT IS USING CYCLOBENZAPRINE, MELOXICAM, AND HYDROCODONE FOR THIS PROBLEM AND STATES THE MEDICATION DOES KEEP HER MOBILE AND FUNCTIONAL. PATIENT REPORTS HAVING OVER 16 HEADACHES A MONTH THAT CONCENTRATES IN THE FRONT PART OF HER HEAD OVER HER EYES WITH NAUSEA, VOMITING, AND REACTION TO SOUND AND LIGHTS. PATIENT DENIES UNEXPLAINABLE WEIGHT LOSS, FEVER, CHILLS, NEW CHANGES ON HER URINARY OR BOWEL CONTROL. FALL RISK SCREENING: SCREENING :NO FALLS IN THE PAST YEAR CURRENT MEDICATIONS TAKING CYCLOBENZAPRINE HCL 10 MG TABLET 1 TABLET ORALLY EVERY BEDTIME, NOTES: MIDNIGHT 10/19/16 TAKING VITAMIN B-12 1000 MCG TABLET 1 TABLET ORALLY ONCE A DAY, NOTES: YESTERDAY 89910/19/16 TAKING VITAMIN D3 5000 UNIT CAPSULE 1 CAPSULE ORALLY ONCE A DAY, NOTES: YESTERDAY 89910/19/16 TAKING MAY USE C PAP DIRECTED TAKING MELOXICAM 7.5 MG TABLET 1 TABLET ORALLY TWICE A DAY, NOTES: 11PM 10/19/16 TAKING HYDROCODONE-ACETAMINOPHEN 5-325 MG TABLET 1 TABLET NEEDED ORALLY DAILY NEEDED, NOTES: Thursday10/18/16 TAKING ASPIRIN ADULT LOW DOSE 81 MG TABLET DELAYED RELEASE 1 TABLET ORALLY ONCE A DAY, NOTES: 229910/19/16 TAKING ESOMEPRAZOLE MAGNESIUM 40 MG CAPSULE DELAYED RELEASE 2 CAPSULES ORALLY TWICE A DAY, NOTES: 229910/19/16 TAKING ATENOLOL 50 MG TABLET 1 TABLET ORALLY ONCE A DAY, NOTES: YESTERDAY 89910/19/16 TAKING HYDROCHLOROTHIAZIDE 25 MG TABLET 1/2 TABLET IN THE MORNING ORALLY ONCE A DAY, NOTES: YESTERDYA 0900 10/19/16 TAKING ZONISAMIDE 100 MG CAPSULE 1 CAPSULES ORALLY ONCE A DAY, NOTES: 2300 10/19/16 TAKING KNEE BRACE - MISCELLANEOUS DIRECTED WEAR DAILY NOT-TAKING CHOLECALCIFEROL 5000 UNIT CAPSULE 1 CAPSULE ORALLY ONCE A DAY NOT-TAKING METOPROLOL TARTRATE 25 MG TABLET 1 TABLET WITH FOOD ORALLY TWICE A DAY NOT-TAKING RELPAX 40 MG TABLET 1 TABLET AT ONSET OF HEADACHE, MAY REPEAT AFTER 2 HOURS IF HEADACHE RETURNS ORALLY NEEDED NOT-TAKING NORTRIPTYLINE HCL 10 MG CAPSULE 2 TAB(S) ORALLY BEDTIME NOT-TAKING TOPIRAMATE 100 MG TABLET 2 TABLETS ORALLY 50 MG. IN THE AM AND 100 MG. AT BEDTIME NOT-TAKING NEXIUM 40 MG CAPSULE DELAYED RELEASE 1 CAP(S) ORALLY TWICE A DAY NOT-TAKING FERROUS SULFATE 220 (44 FE) MG/5ML ELIXIR 5 ML ORALLY TWICE A DAY MEDICATION LIST REVIEWED AND RECONCILED WITH THE PATIENT PAST MEDICAL HISTORY MAC PNEUMONIA WITH BRONCHIECTASIS SEVERE GASTROESOPHAGEAL REFLUX DISEASE FIBROMYALGIA OSTEOARTHRITIS HYPERTENSION MIGRAINE HEADACHE HISTORY OF LUNG ABSCESS AND PNEUMONIA IN 1990 VITAMIN D DEFICIENCY PERNICIOUS ANEMIA COPD TIA SLEEP APNEA ASTHMA CERVICAL RADICULOPATHY HYPOTHYROIDISM LUPUS ERYTHEMATOSUS BILATERAL OCCIPITAL NEURALGIA ALLERGIES ERYTHROMYCIN: NAUSEA/VOMITING: SIDE EFFECTS IMITREX: NUMBNESS IN EXTREMITIES: SIDE EFFECTS SPIRONOLACTONE: DIZZINESS: SIDE EFFECTS LYRICA: CONFUSION: SIDE EFFECTS ROBAXIN: DIZZINESS: SIDE EFFECTS SUMATRIPTAN: DIZZINESS: SIDE EFFECTS AZITHROMYCIN: NAUSEA/VOMITING: SIDE EFFECTS RIFABUTIN: DIZZYNESS: SIDE EFFECTS SURGICAL HISTORY BLADDER SURGERY 1969 TONSILECTOMY 1981 03/2 RIGHT LUNG REMOVED (UPPER PORTION) 2009 FAMILY HISTORY FATHER: ALIVE MOTHER: ALIVE SIBLINGS: ALIVE SON(S): ALIVE DAUGHTER(S): ALIVE PATERNAL GRAND FATHER: PATERNAL GRAND MOTHER: MATERNAL GRAND FATHER: MATERNAL GRAND MOTHER: 1 BROTHER(S) , 2 SISTER(S) . 1 SON(S) , 1 DAUGHTER(S) . FATHER/OXYGEN DEP,SEVERAL SURGERIES,CANCER,HEART DISEASE,MINI STROKES,PARKINSON,ALZHEIMERS,HTN,DIABETES,ARTHRITIS,COPDMOTHER/CO D,ARTHRITISBROTHER HAS ARTHRITIS,LUPUSSISTERS HAVE ARTHRITIS AND 1 SISTER HAS HEART PROBLEMS AND PANIC ATTACKSDAUGHTER HAS MENSTRUAL CYCLE SINCE 10 CONTINUOUS. SOCIAL HISTORY GENERAL: TOBACCO USE ARE YOU A:FORMER SMOKER 1/2 PPD FOR 10 YEARS HOW LONG HAS IT BEEN SINCE YOU LAST SMOKED?> 10 YEARS BMI CARE GOAL FOLLOW-UP ABOVE NORMAL BMI FOLLOW-UPDIETARY MANAGEMENT EDUCATION, GUIDANCE, AND COUNSELING ALCOHOL SCREENING DID YOU HAVE A DRINK CONTAINING ALCOHOL IN THE PAST YEAR?NO POINTS0 INTERPRETATIONNEGATIVE RECREATIONAL DRUG USE DRUG USE? STATES NO HISTORY ILLEGAL DRUG USE. CAFFEINE CAFFEINE USE?NO OCCUPATION: DISABLED. DIET: REGULAR. EXERCISE: NO REGULAR EXERCISE. MARITAL STATUS: . OTHERS AT HOME: SPOUSE, CHILD. PETS: 3 DOGS. ALEVISM ALEVISM NO PREFERENCE LANGUAGE LANGUAGES SPOKEN:MICRONESIAN EDUCATION LEVEL OF EDUCATION:NOT FINISHED HIGH SCHOOL LEARNING BARRIERS / SPECIAL NEEDS CHANGE FROM LAST VISIT?NO BARRIERS TO LEARNING?NO HEARING IMPAIRED?NO VISION IMPAIRED?YES READING GLASSES COGNITIVELY IMPAIRED?NO READINESS TO LEARN?YES LEARNING PREFERENCES?NO LEARNING CAPABILITIES PRESENT?YES EMOTIONAL BARRIERS?NO SPECIAL DEVICES?NO CAUSTIC LOADER NEEDED?NO PAIN CLINIC PFS, CLERGY, PUBLIC HEALTH REFERRALS PFS REFERRAL NEEDED? NO , CLERGY REFERRAL NEEDED? NO , PUBLIC HEALTH REFERRAL NEEDED? NO , WAS THE PROVIDER NOTIFIED OF ANY PERTINENT INFO? NO . PATIENT: ____. ADVANCE DIRECTIVES HEALTH CARE PROXY? UNSURE. INFORMATION OFFERED AND DECLINED. HOUSING: OWNS HOME. HOSPITALIZATION/MAJOR DIAGNOSTIC PROCEDURE BLADDER 1969 TONSILS 1982 CHILDBIRTH 1986 CHILDBIRTH 1992 LUNG 2010 REVIEW OF SYSTEMS REVIEWED BY: PROVIDER: XU FRANCO MD . CONSTITUTIONAL: ANY CHANGE IN YOUR MEDICAL CONDITION? NO . CHILLS NO . FEVER NO . INFECTION: DO YOU HAVE NEW INFECTIONS? NO . DO YOU HAVE HISTORY OF MRSA? NO . MUSCULOSKELETAL: ANY NEW PATTERNS OF PAIN OR NUMBNESS? NO . GASTROENTEROLOGY: ANY NEW CHANGE IN BOWEL CONTROL? NO . GENITOURINARY: ANY NEW CHANGE IN BLADDER CONTROL? NO . IS THERE A CHANCE YOU COULD BE ? NO . HEMATOLOGY/LYMPH: DO YOU TAKE ANY BLOOD THINNERS? (FOR EXAMPLE- COUMADIN, PLAVIX, AGGRENOX, PLATEL, PRADAXA, OR XARELTO) NO . WHEN WAS YOUR LAST DOSE? DATE: TIME: . NEUROLOGY: HAVE YOU FALLEN IN THE PAST 6 MONTHS? NO . ANY NEW EXTREMITY NUMBNESS OR WEAKNESS? NO . CARDIOLOGY: DO YOU HAVE A PACEMAKER OR DEFIBRILLATOR? NO . RESPIRATORY: HAVE YOU BEEN SICK IN THE PAST WEEK? NO . FEVER NO . FLU LIKE SYMPTOMS? NO . COUGH NO . INTEGUMENTARY: DO YOU HAVE ANY RASHES OR OPEN SORES? NO . ALLERGIC/IMMUNO: ARE YOU ALLERGIC TO SHELLFISH OR IV DYE? NO . ANY NEW ALLERGIES? NO . PSYCHIATRIC: DO YOU HAVE THOUGHTS OF HURTING YOURSELF OR SOMEONE ELSE? NO . ARE YOU ABUSED, NEGLECTED, OR IN AN UNSAFE ENVIRONMENT? NO . ENDOCRINOLOGY: ARE YOU DIABETIC? NO . OTHER: DO YOU NEED ANY PRESCRIPTIONS? NO . IF YES, PLEASE LIST: ____ . ANY NEW PROBLEMS WITH YOUR MEDICATIONS? NO . WHEN DID YOU LAST EAT? THURSDAY 5PM . WHEN DID YOU LAST DRINK? THURSDAY 11PM . WHAT DID YOU LAST DRINK? WATER . NAME OF PERSON DRIVING YOU HOME? SUE HUNT . DO YOU HAVE ANY OTHER QUESTIONS OR CONCERNS NO . VITAL SIGNS WT 195 LBS, HT 60 IN, BMI 38.08 INDEX, BP 142/80 MM HG, HR 80 /MIN, RR 18 /MIN, TEMP 98.3 F, OXYGEN SAT % 95%, NA INITIALS TR 0912, REVIEWED BY: [id number]. EXAMINATION : PATIENT IS ALERT O X 3 AND COOPERATIVE. PATIENT REPORTS OVER 16 HEADACHES A DAY WITH SENSITIVITY TO LIGHT AND SOUND WITH NAUSEA AND VOMITING. TENDERNESS IN THE CERVICAL AREA AND LOWER BACK AREA BRACE OVER THE RIGHT KNEE. RIGHT LEG IS WEAKER THEN THE LEFT. MRI OF THE LUMBAR SPINE DONE ON 06/01/16 SHOWS DEGENERATIVE DISC DISEASE AT L3-L4. ASSESSMENTS CHRONIC MIGRAINE WITHOUT AURA, NOT INTRACTABLE, WITHOUT STATUS MIGRAINOSUS - G43.709 (PRIMARY) SPONDYLOSIS WITHOUT MYELOPATHY OR RADICULOPATHY, LUMBAR REGION - M47.816 MYALGIA - M79.1 TREATMENT CHRONIC MIGRAINE WITHOUT AURA, NOT INTRACTABLE, WITHOUT STATUS MIGRAINOSUS NOTES: WE DISCUSSED SEVERAL ISSUES WITH MRS. HUNT'S PAIN MANAGEMENT CASE. AT THIS TIME THE PATIENT WILL CONTINUE WITH THE SAME MEDICATION REGIME BEFORE. WE DISCUSSED SEVERAL INTERVENTIONS THAT MAY AID THE PATIENT IN PAIN RELIEF. AT THIS TIME THE PATIENT DOES NOT WANT TO MOVE FORWARD WITH OCCIPITAL NERVE BLOCKS SHE HAS HAD THEM IN THE PAST AND DID NOT HAVE GOOD RELIEF. AT THIS TIME THE PATIENT WOULD LIKE TO MOVE FORWARD WITH A LUMBAR FACET BLOCK SHE STATES SHE HAS A LOT OF PAIN IN THE LOWER BACK AREA. WE DISCUSSED THE RISKS, BENENFITS, AND ALTNERATIVES OF THE INJECTION AND THE PATIENT WOULD LIKE TO PROCEED AT THIS TIME. INSTRUCTIONS WERE GIVEN, QUESTIONS WERE ANSWERED, PATIENT REPORTS UNDERSTANDING AND AGREES WITH THE PLAN. MELANIE Koo, DOCUMENTED THE ABOVE INFORMATION ACTING A SCRIBE FOR DR. FRANCO. I HAVE REVIEWED THE ABOVE DOCUMENT, WRITTEN BY MELANIE HOWARD AND I VERIFY THAT IT IS ACCURATE. PREVENTIVE MEDICINE REVIEWED THERAPEUTIC FACET AND PREPROCEDURE CARE / PT EXPRESSED UNDERSTANDING. PROCEDURE CODES FA211 ESTABILISHED PATIENT [facility] CHARGE G8427 DOC MEDS VERIFIED W/PT OR RE G8730 PAIN ASSESS POS TOOL F/U PLAN DOC DISPOSITION & COMMUNICATION FOLLOW UP 3 WEEKS ELECTRONICALLY SIGNED BY XU FRANCO MD ON 11/03/2016 AT 05:52 PM EDT DISCLAIMER : THIS IS A VISIT SUMMARY EXTRACTED FROM THE [employer] CHART. IT IS NOT A COPY OF THE [employer] PROGRESS NOTE. KAYDEN
== END ==
LOC: M PAIN 09:00
PROVIDERS: ATTEND Anesthesiology
DX: G43.709 Chronic migraine without aura, not intractable, without status migrainosus (principal); M47.816 Spondylosis without myelopathy or radiculopathy, lumbar region; M79.1 Myalgia; G89.29 Other chronic pain; M54.81 Occipital neuralgia; I10 Essential (primary) hypertension; K21.9 Gastro-esophageal reflux disease without esophagitis; Z87.891 Personal history of nicotine dependence; Z79.82 Long term (current) use of aspirin; Z79.891 Long term (current) use of opiate analgesic; Z79.899 Other long term (current) drug therapy; Z88.1 Allergy status to other antibiotic agents; Z88.0 Allergy status to penicillin; Z88.8 Allergy status to other drugs, medicaments and biological substances

== ENCOUNTER → 2016-11-10 | Outpatient (CLI) | payer BC | LOC: M SMT 10:03 | PROVIDERS: ATTEND Internal Medicine Rheumatology | DX: M81.0 Age-related osteoporosis without current pathological fracture (principal) ==

== ENCOUNTER → 2016-11-18 | Outpatient (CLI) | payer BC, MEDICARE ==
[~2016-11-18] MED LIST changes: +BUPIVACAINE HCL 0.25% 30 ML VIAL As Ordered ONE; +ISOVUE-M 300 61% 15ML VIAL (Q9967) As Ordered ONE; +LIDOCAINE 1% SDV INJ 30 ML VIAL As Ordered ONE; +TRIAMCINOLONE ACETONIDE SUSP 40 MG/ML VIAL (J3301) As Ordered ONE; +diazePAM 5 MG TAB As Ordered ONE; +oxyCODONE 5MG TAB As Ordered ONE
--- NOTE | 2016-11-18 16:48 | REP ---
Partial lumbar spine series: Six views. . History: Injection procedure for pain. 26 seconds of fluoroscopy time is reported. Findings: A sequence of six fluoroscopically obtained last image hold procedural spot radiographs of the lumbar spine document needle position and contrast injection associated with injection procedure. Signed by Ron Colmenares MD 11/18/2016 04:39 P
--- NOTE | 2016-11-19 00:48 | ECWPNPC ---
PATIENT NAME: CHELSY HUNT : 1965 GENDER: FEMALE VISIT DATE: 11/18/2016 DISCHARGE DATE: 11/18/161652 VISIT LOCKED DATE TIME: PHYSICIAN: XU FRANCO RESOURCE: XU FRANCO REASON FOR APPOINTMENT 1. MARYANN, LUM FAC, L4-5, L5-S1 HISTORY OF PRESENT ILLNESS HISTORY OF PRESENT ILLNESS: PAIN THE PATIENT DESCRIBES THE PAIN... FALL RISK SCREENING: SCREENING :NO FALLS IN THE PAST YEAR CURRENT MEDICATIONS TAKING CYCLOBENZAPRINE HCL 10 MG TABLET 1 TABLET ORALLY EVERY BEDTIME, NOTES: 11-17-162099 TAKING VITAMIN B-12 1000 MCG TABLET 1 TABLET ORALLY ONCE A DAY, NOTES: 11-17-16899 TAKING VITAMIN D3 5000 UNIT CAPSULE 1 CAPSULE ORALLY ONCE A DAY, NOTES: 11-17-16899 TAKING MAY USE C PAP DIRECTED TAKING MELOXICAM 7.5 MG TABLET 1 TABLET ORALLY TWICE A DAY, NOTES: 11-17-162099 TAKING HYDROCODONE-ACETAMINOPHEN 5-325 MG TABLET 1 TABLET NEEDED ORALLY DAILY NEEDED, NOTES: 11-17-162099 TAKING ASPIRIN ADULT LOW DOSE 81 MG TABLET DELAYED RELEASE 1 TABLET ORALLY ONCE A DAY, NOTES: 11-17 TAKING ESOMEPRAZOLE MAGNESIUM 40 MG CAPSULE DELAYED RELEASE 2 CAPSULES ORALLY TWICE A DAY, NOTES: 11-17-162099 TAKING ATENOLOL 50 MG TABLET 1 TABLET ORALLY ONCE A DAY, NOTES: 11-18-16799 TAKING HYDROCHLOROTHIAZIDE 25 MG TABLET 1/2 TABLET IN THE MORNING ORALLY ONCE A DAY, NOTES: 11-18-16799 TAKING ZONISAMIDE 100 MG CAPSULE 1 CAPSULES ORALLY ONCE A DAY, NOTES: 2300 10/19/16 TAKING KNEE BRACE - MISCELLANEOUS DIRECTED WEAR DAILY NOT-TAKING CHOLECALCIFEROL 5000 UNIT CAPSULE 1 CAPSULE ORALLY ONCE A DAY NOT-TAKING METOPROLOL TARTRATE 25 MG TABLET 1 TABLET WITH FOOD ORALLY TWICE A DAY NOT-TAKING RELPAX 40 MG TABLET 1 TABLET AT ONSET OF HEADACHE, MAY REPEAT AFTER 2 HOURS IF HEADACHE RETURNS ORALLY NEEDED NOT-TAKING NORTRIPTYLINE HCL 10 MG CAPSULE 2 TAB(S) ORALLY BEDTIME NOT-TAKING TOPIRAMATE 100 MG TABLET 2 TABLETS ORALLY 50 MG. IN THE AM AND 100 MG. AT BEDTIME NOT-TAKING NEXIUM 40 MG CAPSULE DELAYED RELEASE 1 CAP(S) ORALLY TWICE A DAY NOT-TAKING FERROUS SULFATE 220 (44 FE) MG/5ML ELIXIR 5 ML ORALLY TWICE A DAY MEDICATION LIST REVIEWED AND RECONCILED WITH THE PATIENT PAST MEDICAL HISTORY MAC PNEUMONIA WITH BRONCHIECTASIS SEVERE GASTROESOPHAGEAL REFLUX DISEASE FIBROMYALGIA OSTEOARTHRITIS HYPERTENSION MIGRAINE HEADACHE HISTORY OF LUNG ABSCESS AND PNEUMONIA IN 1990 VITAMIN D DEFICIENCY PERNICIOUS ANEMIA COPD TIA SLEEP APNEA ASTHMA CERVICAL RADICULOPATHY HYPOTHYROIDISM LUPUS ERYTHEMATOSUS BILATERAL OCCIPITAL NEURALGIA ALLERGIES ERYTHROMYCIN: NAUSEA/VOMITING: SIDE EFFECTS IMITREX: NUMBNESS IN EXTREMITIES: SIDE EFFECTS SPIRONOLACTONE: DIZZINESS: SIDE EFFECTS LYRICA: CONFUSION: SIDE EFFECTS ROBAXIN: DIZZINESS: SIDE EFFECTS SUMATRIPTAN: DIZZINESS: SIDE EFFECTS AZITHROMYCIN: NAUSEA/VOMITING: SIDE EFFECTS RIFABUTIN: DIZZYNESS: SIDE EFFECTS SURGICAL HISTORY BLADDER SURGERY 1969 TONSILECTOMY 03/17 RIGHT LUNG REMOVED (UPPER PORTION) 2009 HOSPITALIZATION/MAJOR DIAGNOSTIC PROCEDURE BLADDER 1969 TONSILS 1981 CHILDBIRTH 1985 CHILDBIRTH 1991 LUNG 2010 REVIEW OF SYSTEMS REVIEWED BY: PROVIDER: XU FRANCO MD . CONSTITUTIONAL: ANY CHANGE IN YOUR MEDICAL CONDITION? NO . CHILLS NO . FEVER NO . INFECTION: DO YOU HAVE NEW INFECTIONS? NO . DO YOU HAVE HISTORY OF MRSA? NO . MUSCULOSKELETAL: ANY NEW PATTERNS OF PAIN OR NUMBNESS? NO . GASTROENTEROLOGY: ANY NEW CHANGE IN BOWEL CONTROL? NO . GENITOURINARY: ANY NEW CHANGE IN BLADDER CONTROL? NO . IS THERE A CHANCE YOU COULD BE ? NO . HEMATOLOGY/LYMPH: DO YOU TAKE ANY BLOOD THINNERS? (FOR EXAMPLE- COUMADIN, PLAVIX, AGGRENOX, PLATEL, PRADAXA, OR XARELTO) NO . WHEN WAS YOUR LAST DOSE? DATE: TIME: . NEUROLOGY: HAVE YOU FALLEN IN THE PAST 6 MONTHS? NO . ANY NEW EXTREMITY NUMBNESS OR WEAKNESS? NO . CARDIOLOGY: DO YOU HAVE A PACEMAKER OR DEFIBRILLATOR? NO . RESPIRATORY: HAVE YOU BEEN SICK IN THE PAST WEEK? NO . FEVER NO . FLU LIKE SYMPTOMS? NO . COUGH NO . INTEGUMENTARY: DO YOU HAVE ANY RASHES OR OPEN SORES? NO . ALLERGIC/IMMUNO: ARE YOU ALLERGIC TO SHELLFISH OR IV DYE? NO . ANY NEW ALLERGIES? NO . PSYCHIATRIC: DO YOU HAVE THOUGHTS OF HURTING YOURSELF OR SOMEONE ELSE? NO . ARE YOU ABUSED, NEGLECTED, OR IN AN UNSAFE ENVIRONMENT? NO . ENDOCRINOLOGY: ARE YOU DIABETIC? NO . OTHER: DO YOU NEED ANY PRESCRIPTIONS? NO . IF YES, PLEASE LIST: ____ . ANY NEW PROBLEMS WITH YOUR MEDICATIONS? NO . WHEN DID YOU LAST EAT? ____YESTERDAY AT 6 PM . WHEN DID YOU LAST DRINK? ____TODAY AT 10 AM . WHAT DID YOU LAST DRINK? ____WATER . NAME OF PERSON DRIVING YOU HOME? ____DAY . DO YOU HAVE ANY OTHER QUESTIONS OR CONCERNS NO . VITAL SIGNS WT 175 LBS, HT 60 IN, BMI 34.17 INDEX, BP 149/72 MM HG, HR 89 /MIN, RR 18 /MIN, TEMP 99.1 F, OXYGEN SAT % 97%, NA INITIALS SC 14:08, REVIEWED BY: KG. ASSESSMENTS SPONDYLOSIS WITHOUT MYELOPATHY OR RADICULOPATHY, LUMBAR REGION - M47.816 (PRIMARY) SPONDYLOSIS WITHOUT MYELOPATHY OR RADICULOPATHY, LUMBOSACRAL REGION - M47.817 PROCEDURES PN LUMBAR FACET BLOCK THERAPEUTIC PRE PROCEDURE DIAGNOSIS LUMBAR SPONDYLOSIS, LUMBOSACRAL SPONDYLOSIS POST PROCEDURE DIAGNOSIS LUMBAR SPONDYLOSIS, LUMBOSACRAL SPONDYLOSIS PROCEDURE BILATERAL L4-5, L5-S1 LUMBAR FACET THERAPEUTIC BLOCK SURGEON DR. XU FRANCO SURGICAL SCRUB TECH NONE ANESTHESIA LOCAL PRE PROCEDURE NOTE THE PATIENT HAS A HISTORY OF CHRONIC LOW BACK PAIN. I EVALUATE THE PATIENT AND REVIEWED THE CHART. I WENT OVER THE RISKS, ALTERNATIVES, AND BENEFITS ASSOCIATED WITH THIS PROCEDURE. THE PATIENT WOULD LIKE TO PROCEED AND GIVE CONSENT TO PERFORMED THE PROCEDURE. THE PATIENT DENIES UNEXPLAINABLE WEIGHT LOSS, FEVER, CHILLS, OR NEW CHANGES IN URINARY OR BOWEL CONTROL DESCRIPTION OF PROCEDURE THE PATIENT WAS BROUGHT TO THE PROCEDURE ROOM AND PLACED IN THE PRONE POSITION. THE LUMBOSACRAL AREA WAS CLEANED WITH CHLORAPREP SOLUTION AND DRAPED ASEPTICALLY. THE PROCEDURE WAS DONE UNDER STERILE CONDITIONS. I CHECKED LATERALITY AND THE LEVEL WHERE THE PROCEDURE WAS GOING TO BE PERFORMED WITH THE PATIENT AND THE SUPPORTING STAFF AT THE MOMENT OF THE TIME OUT IN THE PROCEDURE ROOM. UNDER FLUOROSCOPIC GUIDANCE, THE TARGET POINT WAS SELECTED AT THE LEFT AND RIGHT L4-L5 FACET JOINT AND AT THE LEFT AND RIGHT L5-S1 FACET JOINT. TARGET POINT WAS SELECTED AFTER LATERAL ROTATION AND TILT OF THE MAGNIFIER OF THE C-ARM. LIDOCAINE 0.5% WAS USED TO NUMB THE SKIN AND THE SUBCUTANEOUS TISSUE BELOW IT. SPINAL NEEDLES, 22-GAUGE, WERE ADVANCED UNDER FLUOROSCOPIC GUIDANCE AND FOLLOWING PATIENT FEEDBACK UNTIL THE TARGETS WERE TOUCHED. THE POSITION OF THE NEEDLES WAS VERIFIED WITH AP AND LATERAL VIEWS. AFTER PROPER POSITION OF THE NEEDLES WAS ACHIEVED, ISOVUE-M DYE 30% 0.1 ML WAS INJECTED SHOWING ADEQUATE SPREAD OF THE DYE. THEN A SOLUTION OF 1.9 ML OF BUPIVACAINE 0.125% OF KENALOG 10 MG WAS INJECTED AT EACH SITE. THERE WAS NO EVIDENCE OF BLOOD, PARESTHESIA OR CEREBROSPINAL FLUID DURING THE PROCEDURE. THE PATIENT WAS SENT TO THE RECOVERY ROOM. THE PATIENT WAS MOVING THE EXTREMITIES AND DOING WELL. THERE WAS NO COMPLICATION DURING THE PROCEDURE. FLUOROSCOPY TIME WAS 26 SECONDS POST PROCEDURE NOTE THE PATIENT WILL BE SEEN IN A FOLLOW UP IN THE NEXT FEW WEEKS. INSTRUCTIONS WERE GIVEN, QUESTIONS WERE ANSWERED, AND THE PATIENT EXPRESSED UNDERSTANDING AND AGREES WITH THE PLAN. I KALINA LUNA DOCUMENTED THE ABOVE INFORMATION ACTING A CASINO GAMING WORKER FOR DR. FRANCO. I HAVE REVIEWED THE ABOVE DOCUMENT WRITTEN BY KALINA LUNA SCRIBHiginio AND I VERIFY THAT IT IS ACCURATE. DIAGNOSTIC IMAGING [facility] FACET BLOCK (PAIN)[id number] PROCEDURE CODES 11799 INJ PARAVERT F JNT L/S 1 LEV 45025 INJ PARAVERT F JNT L/S 2 LEV 6045F RADXPS IN END [id number] PXD DISPOSITION & COMMUNICATION FOLLOW UP 3 WEEKS ELECTRONICALLY SIGNED BY XU FRANCO MD ON 11/18/2016 AT 07:02 PM EDT DISCLAIMER : THIS IS A VISIT SUMMARY EXTRACTED FROM THE [employer] CHART. IT IS NOT A COPY OF THE [employer] PROGRESS NOTE. MTDD
== END ==
LOC: M PAIN 14:00
PROVIDERS: ATTEND Anesthesiology
DX: G89.29 Other chronic pain (principal); M47.816 Spondylosis without myelopathy or radiculopathy, lumbar region; M47.817 Spondylosis without myelopathy or radiculopathy, lumbosacral region; M54.5 Low back pain; I10 Essential (primary) hypertension; K21.9 Gastro-esophageal reflux disease without esophagitis; G43.709 Chronic migraine without aura, not intractable, without status migrainosus; Z79.891 Long term (current) use of opiate analgesic; Z79.82 Long term (current) use of aspirin; Z79.899 Other long term (current) drug therapy; Z88.0 Allergy status to penicillin; Z88.1 Allergy status to other antibiotic agents; Z88.8 Allergy status to other drugs, medicaments and biological substances
CPT/HCPCS: 64493; 64494; J3301; Q9967

== ENCOUNTER → 2016-12-24 | Outpatient (REF) | payer BC, MEDICARE ==
[~2016-12-24] MED LIST changes: -BUPIVACAINE HCL 0.25% 30 ML VIAL As Ordered ONE; -ISOVUE-M 300 61% 15ML VIAL (Q9967) As Ordered ONE; -LIDOCAINE 1% SDV INJ 30 ML VIAL As Ordered ONE; -TRIAMCINOLONE ACETONIDE SUSP 40 MG/ML VIAL (J3301) As Ordered ONE; -diazePAM 5 MG TAB As Ordered ONE; -oxyCODONE 5MG TAB As Ordered ONE
[2016-12-24 14:17] LABS: ALBUMIN 3.7 GM/DL (3.2-5.2); ALBUMIN/GLOBULIN RATIO 1.23 (1.00-1.93); ALKALINE PHOSPHATASE 72 U/L (45-117); ALT/SGPT 21 U/L (12-78); ANION GAP 7 MEQ/L (8-16); AST/SGOT 10 U/L (15-37); BILIRUBIN,TOTAL 0.4 MG/DL (0.2-1.0); BLOOD UREA NITROGEN 11 MG/DL (7-18); CALCIUM LEVEL 9.3 MG/DL (8.5-10.1); CARBON DIOXIDE LEVEL 27 MEQ/L (21-32); CHLORIDE LEVEL 105 MEQ/L (98-107); CREATININE FOR GFR 0.82 MG/DL (0.55-1.02); GLOMERULAR FILTRATION RATE > 60.0 (>51); GLUCOSE, FASTING 93 MG/DL (70-105); POTASSIUM SERUM 4.2 MEQ/L (3.5-5.1); SODIUM LEVEL 139 MEQ/L (136-145); TOTAL PROTEIN 6.7 GM/DL (6.4-8.2)
== END ==
LOC: M LABNEURO 09:17
PROVIDERS: ATTEND Physician Assistant Medical
DX: R51 Headache (principal); M79.89 Other specified soft tissue disorders

== ENCOUNTER → 2017-02-19 | Outpatient (CLI) | payer BC, MEDICARE | LOC: M PAIN 13:30 | DX: M54.81 Occipital neuralgia (principal); M12.88 Other specific arthropathies, not elsewhere classified, other specified site; K21.9 Gastro-esophageal reflux disease without esophagitis; M79.7 Fibromyalgia; I10 Essential (primary) hypertension; G43.909 Migraine, unspecified, not intractable, without status migrainosus; E55.9 Vitamin D deficiency, unspecified; J44.9 Chronic obstructive pulmonary disease, unspecified; G47.30 Sleep apnea, unspecified; E03.9 Hypothyroidism, unspecified; M32.9 Systemic lupus erythematosus, unspecified; Z88.1 Allergy status to other antibiotic agents; Z88.8 Allergy status to other drugs, medicaments and biological substances; Z79.82 Long term (current) use of aspirin; Z79.899 Other long term (current) drug therapy; Z87.891 Personal history of nicotine dependence; Z86.73 Personal history of transient ischemic attack (TIA), and cerebral infarction without residual deficits | CPT/HCPCS: G0463 ==

== ENCOUNTER → 2017-07-15 | Outpatient (REF) | payer BC, MEDICARE ==
[2017-07-15 17:58] LABS: BASO # 0.1 10^3/uL (0.0-0.2); EOS # 0.1 10^3/uL (0.0-0.50); EOS % 1.3 % (0.0-3.0); HEMATOCRIT 39.4 % (36.0-47.0); HEMOGLOBIN 12.3 g/dl (12.0-15.5); IMMATURE GRANULOCYTE % 0.2 % (0-3.0); LYMPH # 2.1 10^3/uL (1.5-4.5); LYMPH % 33.2 % (24.0-44.0); MEAN CORPUSCULAR HEMOGLOBIN 26.3 pg (27.0-33.0); MEAN CORPUSCULAR HGB CONC 31.2 g/dl (32.0-36.5); MEAN CORPUSCULAR VOLUME 84.2 fl (80.0-96.0); MONO # 0.5 10^3/uL (0.0-0.8); MONO % 7.5 % (0.0-5.0); NEUTROPHILS # 3.5 10^3/uL (1.8-7.7); NEUTROPHILS % 56.8 % (36.0-66.0); PLATELET COUNT, AUTOMATED 427 10^3/uL (150-450); RED BLOOD COUNT 4.68 10^6/uL (4.00-5.40); RED CELL DISTRIBUTION WIDTH 14.5 % (11.5-14.5); WHITE BLOOD COUNT 6.2 10^3/uL (4.0-10.0)
[2017-07-15 17:59] LABS: RHEUMATOID FACTOR QUANT < 10.0 IU/ML (<15.0)
[2017-07-15 18:03] LABS: TOTAL 25(OH) VITAMIN D 20.8 NG/ML (30.0-100.0)
[2017-07-15 19:03] LABS: ERYTHROCYTE SEDIMENTATION RATE 12 mm/hr (0-30)
[2017-07-20 14:12] LABS: ANTINUCLEAR ANTIBODIES DIRECT Negative (Negative); ZONISAMIDE LEVEL 7.1 ug/mL (10.0-40.0)
== END ==
LOC: M LABNEURO 13:51
DX: E55.9 Vitamin D deficiency, unspecified (principal); M06.9 Rheumatoid arthritis, unspecified; M25.50 Pain in unspecified joint; R51 Headache
CPT/HCPCS: 82306

== ENCOUNTER → 2017-11-27 | Outpatient (CLI) | payer BC, MEDICARE ==
[2017-11-27 13:13] LABS: BASO # 0.1 10^3/uL (0.0-0.2); BASO % 0.7 % (0.0-1.0); EOS # 0.1 10^3/uL (0.0-0.50); EOS % 0.6 % (0.0-3.0); HEMATOCRIT 41.8 % (36.0-47.0); IMMATURE GRANULOCYTE % 0.5 % (0-3.0); LYMPH # 2.7 10^3/uL (1.5-4.5); LYMPH % 29.9 % (24.0-44.0); MEAN CORPUSCULAR HEMOGLOBIN 27.1 pg (27.0-33.0); MEAN CORPUSCULAR HGB CONC 31.1 g/dl (32.0-36.5); MEAN CORPUSCULAR VOLUME 87.1 fl (80.0-96.0); MONO # 0.6 10^3/uL (0.0-0.8); MONO % 6.4 % (0.0-5.0); NEUTROPHILS # 5.5 10^3/uL (1.8-7.7); NEUTROPHILS % 61.9 % (36.0-66.0); PLATELET COUNT, AUTOMATED 429 10^3/uL (150-450); RED CELL DISTRIBUTION WIDTH 15.6 % (11.5-14.5); WHITE BLOOD COUNT 8.9 10^3/uL (4.0-10.0)
[2017-11-27 13:46] LABS: ALBUMIN 3.7 GM/DL (3.2-5.2); ALBUMIN/GLOBULIN RATIO 1.16 (1.00-1.93); ALKALINE PHOSPHATASE 82 U/L (45-117); ALT/SGPT 16 U/L (12-78); ANION GAP 7 MEQ/L (8-16); AST/SGOT 10 U/L (7-37); BILIRUBIN,TOTAL 0.4 MG/DL (0.2-1.0); BLOOD UREA NITROGEN 8 MG/DL (7-18); C REACTIVE PROTEIN QUANTITATIV < 0.30 MG/DL (0.00-0.30); CARBON DIOXIDE LEVEL 26 MEQ/L (21-32); CHLORIDE LEVEL 105 MEQ/L (98-107); CREATININE FOR GFR 0.81 MG/DL (0.55-1.30); GLOMERULAR FILTRATION RATE > 60.0 (>51); GLUCOSE, FASTING 89 MG/DL (70-100); POTASSIUM SERUM 4.3 MEQ/L (3.5-5.1); SODIUM LEVEL 138 MEQ/L (136-145); TOTAL PROTEIN 6.9 GM/DL (6.4-8.2)
[2017-12-01 00:07] LABS: G6PD2 4.74 x10E6/uL (3.77-5.28); G6PD3 292 (146-376)
== END ==
LOC: M SMT 10:07
DX: M06.4 Inflammatory polyarthropathy (principal)
CPT/HCPCS: 80053

== ENCOUNTER → 2017-11-27 | Outpatient (CLI) | payer BC, MEDICARE ==
[2017-11-27 14:10] LABS: TOTAL 25(OH) VITAMIN D 48.7 NG/ML (30.0-100.0)
== END ==
LOC: M SMT 10:02
DX: E55.9 Vitamin D deficiency, unspecified (principal)
CPT/HCPCS: 82306

== ENCOUNTER → 2018-05-13 | Outpatient (CLI) | payer BC, MEDICARE ==
[2018-05-13 14:13] LABS: CHOLESTEROL RISK RATIO 2.771 (<5)
== END ==
LOC: M SMT 11:25
PROVIDERS: ATTEND Physician Assistant
DX: Z13.220 Encounter for screening for lipoid disorders (principal)

== ENCOUNTER → 2018-06-29 | Outpatient (CLI) | payer BC, MEDICARE ==
[~2018-06-29] MED LIST changes: -/ESOM40CA OR; +NEXI1CAP3 OR
--- NOTE | 2018-06-29 14:41 | REP ---
REASON: Followup. COMPARISON: Multiple, the latest 04/17/2017. Postop changes are again seen status quo. There is volume loss on the right which appears stable. There is a large hiatal hernia, which has been seen on multiple priors. There are no new abnormal patchy parenchymal opacities or pleural effusions. There is no significant change in the appearance of the osseous structures. IMPRESSION: Stable appearing chronic changes as described above. Electronically Signed by Chris Tirado DO 06/29/2018 03:53 P
== END ==
LOC: M SMT 14:09
PROVIDERS: ATTEND Internal Medicine Pulmonary Disease
DX: R91.8 Other nonspecific abnormal finding of lung field (principal)

== ENCOUNTER → 2018-08-18 | Outpatient (REF) | payer BC, MEDICARE ==
[2018-08-18 13:02] LABS: ALBUMIN 3.7 GM/DL (3.2-5.2); ALT/SGPT 16 U/L (12-78); BILIRUBIN,TOTAL 0.4 MG/DL (0.2-1.0); BLOOD UREA NITROGEN 9 MG/DL (7-18); CARBON DIOXIDE LEVEL 25 MEQ/L (21-32); CHLORIDE LEVEL 105 MEQ/L (98-107); CHOLESTEROL LEVEL 210 MG/DL (<200); CHOLESTEROL RISK RATIO 3.043 (<5); CREATININE FOR GFR 0.83 MG/DL (0.55-1.30); GLOMERULAR FILTRATION RATE > 60.0 (>51); GLUCOSE, FASTING 91 MG/DL (70-100); HDL CHOLESTEROL 69 MG/DL (>40); LDL CHOLESTEROL 125 MG/DL (<100); NON-HDL-C 141 MG/DL; POTASSIUM SERUM 4.6 MEQ/L (3.5-5.1); SODIUM LEVEL 140 MEQ/L (136-145); THYROID STIMULATING HORMONE 0.936 uIU/ML (0.358-3.740); TRIGLYCERIDES LEVEL 78 MG/DL (<150)
== END ==
LOC: M SFHCLERA 08:51
PROVIDERS: ATTEND Family Medicine
DX: E66.09 Other obesity due to excess calories (principal)

== ENCOUNTER → 2020-06-08 | Outpatient (REF) | payer BC, MEDICARE ==
[2020-06-08 19:20] LABS: ALBUMIN 3.9 GM/DL (3.2-5.2); ALT/SGPT 17 U/L (12-78); BILIRUBIN,TOTAL 0.3 MG/DL (0.2-1.0); BLOOD UREA NITROGEN 10 MG/DL (7-18); CALCIUM LEVEL 8.9 MG/DL (8.5-10.1); CARBON DIOXIDE LEVEL 31 MEQ/L (21-32); CHLORIDE LEVEL 106 MEQ/L (98-107); CHOLESTEROL LEVEL 181 MG/DL (<200); CHOLESTEROL RISK RATIO 2.479 (<5); CREATININE FOR GFR 0.85 MG/DL (0.55-1.30); GLOMERULAR FILTRATION RATE > 60.0 (>51); GLUCOSE, FASTING 92 MG/DL (70-100); HDL CHOLESTEROL 73 MG/DL (>40); LDL CHOLESTEROL 97 MG/DL (<100); NON-HDL-C 108 MG/DL; POTASSIUM SERUM 4.4 MEQ/L (3.5-5.1); SODIUM LEVEL 141 MEQ/L (136-145); TOTAL PROTEIN 7.1 GM/DL (6.4-8.2); TRIGLYCERIDES LEVEL 55 MG/DL (<150)
== END ==
LOC: M LAB REF 17:59 → M LABDRWAD 17:59
PROVIDERS: ATTEND Physician Assistant
DX: I10 Essential (primary) hypertension (principal); Z13.220 Encounter for screening for lipoid disorders

== ENCOUNTER → 2021-07-26 | Outpatient (CLI) | payer BC, MEDICARE | LOC: M PLALAB 11:37 | PROVIDERS: ATTEND Physician Assistant | DX: I10 Essential (primary) hypertension (principal); Z13.220 Encounter for screening for lipoid disorders ==

== ENCOUNTER → 2021-07-26 | Outpatient (CLI) | payer BC, MEDICARE ==
[2021-07-26 13:56] LABS: HEMATOCRIT 41.5 % (36.0-47.0); HEMOGLOBIN 13.3 g/dl (12.0-15.5); MEAN CORPUSCULAR HEMOGLOBIN 28.3 pg (27.0-33.0); MEAN CORPUSCULAR VOLUME 88.3 fl (80.0-96.0); PLATELET COUNT, AUTOMATED 368 10^3/uL (150-450); WHITE BLOOD COUNT 6.9 10^3/uL (4.0-10.0)
[2021-07-26 14:36] LABS: ALBUMIN 3.7 GM/DL (3.2-5.2); ALT/SGPT 17 U/L (12-78); BILIRUBIN,TOTAL 0.6 MG/DL (0.2-1.0); BLOOD UREA NITROGEN 9 MG/DL (7-18); CARBON DIOXIDE LEVEL 29 MEQ/L (21-32); CHLORIDE LEVEL 106 MEQ/L (98-107); CHOLESTEROL LEVEL 173 MG/DL (<200); CHOLESTEROL RISK RATIO 2.703 (<5); FREE T4 1.18 NG/DL (0.76-1.46); GLOMERULAR FILTRATION RATE > 60.0 (>51); GLUCOSE, FASTING 94 MG/DL (70-100); HDL CHOLESTEROL 64 MG/DL (>40); LDL CHOLESTEROL 99 MG/DL (<100); MAGNESIUM LEVEL 2.2 MG/DL (1.8-2.4); NON-HDL-C 109 MG/DL; SODIUM LEVEL 139 MEQ/L (136-145); THYROID STIMULATING HORMONE 0.709 uIU/ML (0.358-3.740); TOTAL 25(OH) VITAMIN D 15.2 NG/ML (30.0-100.0); TOTAL PROTEIN 6.9 GM/DL (6.4-8.2); TRIGLYCERIDES LEVEL 51 MG/DL (<150); VITAMIN B12 LEVEL 265 PG/ML
== END ==
LOC: M PLALAB 11:40
PROVIDERS: ATTEND Physician Assistant Medical
DX: E53.8 Deficiency of other specified B group vitamins (principal); E55.9 Vitamin D deficiency, unspecified; I10 Essential (primary) hypertension; I25.110 Atherosclerotic heart disease of native coronary artery with unstable angina pectoris; E03.9 Hypothyroidism, unspecified

== ENCOUNTER → 2022-03-26 | Outpatient (REF) | payer BC, MEDICARE | LOC: M LABWUC 12:35 | PROVIDERS: ATTEND Physician Assistant Medical | DX: E55.9 Vitamin D deficiency, unspecified (principal) ==

== ENCOUNTER → 2022-08-15 | Outpatient (CLI) | payer BC, MEDICARE | LOC: M PLAIMG 10:22 | PROVIDERS: ATTEND Internal Medicine Pulmonary Disease | DX: R91.8 Other nonspecific abnormal finding of lung field (principal); K44.9 Diaphragmatic hernia without obstruction or gangrene ==

== ENCOUNTER → 2023-02-17 | Outpatient (CLI) | payer BC, MEDICARE ==
[2023-02-17 15:48] LABS: HEMATOCRIT 40.6 % (36.0-47.0); HEMOGLOBIN 13.1 g/dl (12.0-15.5); MEAN CORPUSCULAR HEMOGLOBIN 29.4 pg (27.0-33.0); MEAN CORPUSCULAR HGB CONC 32.3 g/dl (32.0-36.5); PLATELET COUNT, AUTOMATED 396 10^3/uL (150-450); RED BLOOD COUNT 4.46 10^6/uL (4.00-5.40); WHITE BLOOD COUNT 7.1 10^3/uL (4.0-10.0)
[2023-02-17 15:52] LABS: ALBUMIN 3.6 G/DL (3.2-5.2); ALKALINE PHOSPHATASE 76 U/L (46-116); ALT/SGPT 12 U/L (7.0-40); AST/SGOT 11 U/L (<34); BILIRUBIN,TOTAL 0.4 MG/DL (0.3-1.2); BLOOD UREA NITROGEN 12 MG/DL (9-23); CARBON DIOXIDE LEVEL 27 MMOL/L (20-31); CHLORIDE LEVEL 106 MMOL/L (98-107); CHOLESTEROL LEVEL 178 MG/DL (<200); CHOLESTEROL RISK RATIO 2.77 (<5); CREATININE FOR GFR 0.73 MG/DL (0.55-1.30); GLOMERULAR FILTRATION RATE > 60.0 (>51); GLUCOSE, FASTING 99 MG/DL (60-100); HDL CHOLESTEROL 64.2 MG/DL (>40); LDL CHOLESTEROL 100.8 MG/DL (<100); NON-HDL-C 113.8 MG/DL; POTASSIUM SERUM 4.8 MMOL/L (3.5-5.1); SODIUM LEVEL 140 MMOL/L (136-145); TOTAL PROTEIN 6.5 G/DL (5.7-8.2); TRIGLYCERIDES LEVEL 65 MG/DL (<150)
[2023-02-17 15:53] LABS: FREE T4 1.07 NG/DL (0.89-1.76)
[2023-02-17 15:54] LABS: THYROID STIMULATING HORMONE 0.889 uIU/ML (0.55-4.78)
== END ==
LOC: M PLALAB 12:11
PROVIDERS: ATTEND Physician Assistant Medical
DX: E55.9 Vitamin D deficiency, unspecified (principal); I10 Essential (primary) hypertension; Z91.89 Other specified personal risk factors, not elsewhere classified; R63.4 Abnormal weight loss

== ENCOUNTER → 2023-08-12 | Outpatient (CLI) | payer BC, MEDICARE ==
[2023-08-12 14:47] LABS: HEMATOCRIT 41.2 % (36.0-47.0); HEMOGLOBIN 13.2 g/dl (12.0-15.5); MEAN CORPUSCULAR HEMOGLOBIN 28.9 pg (27.0-33.0); MEAN CORPUSCULAR VOLUME 90.2 fl (80.0-96.0); PLATELET COUNT, AUTOMATED 391 10^3/uL (150-450); RED BLOOD COUNT 4.57 10^6/uL (4.00-5.40); WHITE BLOOD COUNT 6.3 10^3/uL (4.0-10.0)
[2023-08-12 15:21] LABS: ALBUMIN 3.4 G/DL (3.2-5.2); ALKALINE PHOSPHATASE 101 U/L (46-116); ALT/SGPT 10 U/L (7.0-40); AST/SGOT < 8 U/L (<34); BILIRUBIN,TOTAL 0.5 MG/DL (0.3-1.2); BLOOD UREA NITROGEN 8 MG/DL (9-23); CALCIUM LEVEL 9.1 MG/DL (8.5-10.1); CARBON DIOXIDE LEVEL 28 MMOL/L (20-31); CHLORIDE LEVEL 108 MMOL/L (98-107); CHOLESTEROL LEVEL 149 MG/DL (<200); CHOLESTEROL RISK RATIO 2.71 (<5); GLOMERULAR FILTRATION RATE > 60.0 (>51); GLUCOSE, FASTING 99 MG/DL (60-100); HDL CHOLESTEROL 54.8 MG/DL (>40); NON-HDL-C 94.2 MG/DL; POTASSIUM SERUM 3.8 MMOL/L (3.5-5.1); SODIUM LEVEL 141 MMOL/L (136-145); TOTAL PROTEIN 6.4 G/DL (5.7-8.2); TRIGLYCERIDES LEVEL 61 MG/DL (<150)
[2023-08-12 15:23] LABS: THYROID STIMULATING HORMONE 1.069 uIU/ML (0.55-4.78); TOTAL 25(OH) VITAMIN D 22.6 NG/ML (20.0-100.0)
[2023-08-12 15:25] LABS: FREE T4 1.16 NG/DL (0.89-1.76)
== END ==
LOC: M PLALAB 09:41
PROVIDERS: ATTEND Physician Assistant Medical
DX: E03.9 Hypothyroidism, unspecified (principal); E55.9 Vitamin D deficiency, unspecified; I10 Essential (primary) hypertension; E78.00 Pure hypercholesterolemia, unspecified

== ENCOUNTER → 2023-08-18 | Outpatient (CLI) | payer BC, MEDICARE | LOC: M PLAIMG 15:36 | PROVIDERS: ATTEND Internal Medicine Pulmonary Disease | DX: R91.8 Other nonspecific abnormal finding of lung field (principal) ==